=== PATIENT | male | born 1985 | race African-American/Black ===

== ENCOUNTER 2020-12-09 01:40 | Emergency (ER) | payer OTHER | END 2020-12-09 02:23 | disposition home or self-care (01) | LOC: EDH 01:40 | DX: D17.0 Benign lipomatous neoplasm of skin and subcutaneous tissue of head, face and neck (principal); Z72.0 Tobacco use ==

== ENCOUNTER 2021-01-30 10:20 | Emergency (ER) | payer SELFPAY | END 2021-01-30 11:22 | disposition home or self-care (01) | LOC: EDH 10:20 | DX: S61.412A Laceration without foreign body of left hand, initial encounter (principal); W26.0XXA Contact with knife, initial encounter; Y93.89 Activity, other specified; Y92.89 Other specified places as the place of occurrence of the external cause; Y99.8 Other external cause status | CPT/HCPCS: 99282 ==

== ENCOUNTER 2023-06-06 07:13 | Emergency (ER) | payer BC ==
[~2023-06-06] VITALS: Ht 185.4 cm; Wt 99.8 kg
[2023-06-06 08:22] LABS: BASOPHILS % (AUTO) 1.1 % (0.0-5.0); EOSINOPHILS % (AUTO) 6.4 % (0.0-8.0); HEMATOCRIT 42.3 % (42-54); LYMPHOCYTES % (AUTO) 43.3 % (21.0-51.0); MEAN CORPUSCULAR HEMOGLOBIN 28.7 pg (27.0-33.0); MEAN CORPUSCULAR HGB CONC 31.9 g/dL (32.0-36.0); MONOCYTES % (AUTO) 9.1 % (3.0-13.0); NEUTROPHILS % (AUTO) 39.9 % (40.0-77.0); PLATELET COUNT (AUTO) 188 K/uL (130-400); RED CELL DISTRIBUTION WIDTH 12.5 % (11.0-15.5); WHITE BLOOD COUNT (AUTO) 4.5 K/uL (4.8-10.8)
[2023-06-06 08:32] LABS: CREATININE 1.1 mg/dL (0.5-1.5); POTASSIUM 4.3 mmol/L (3.5-5.1)
[2023-06-06 09:52] VITALS: BP 128/84; PULSE 55; RESP 16; O2SAT 99
== END 2023-06-06 10:33 | disposition home or self-care (01) ==
LOC: EDH 07:13
DX: R51.9 Headache, unspecified (principal); F17.210 Nicotine dependence, cigarettes, uncomplicated; Z20.822 Contact with and (suspected) exposure to COVID-19
CPT/HCPCS: 99284; 70450; 87635; 80048; 85025; 87804 ×2; 36415; C9803